=== PATIENT | male | born 1990 | race Caucasian/White ===

== ENCOUNTER 2021-01-09 18:45 | Emergency (ER) | payer SELFPAY ==
[~2021-01-09] VITALS: Ht 182.9 cm; Wt 87.0 kg
[2021-01-09 20:19] VITALS: BP 115/84
== END 2021-01-09 20:20 | disposition home or self-care (01) ==
LOC: ER 19:05
DX: R55 Syncope and collapse (principal); K90.0 Celiac disease; R56.9 Unspecified convulsions; F17.210 Nicotine dependence, cigarettes, uncomplicated
CPT/HCPCS: 99283; C1893